=== PATIENT | male | born 1975 | race Hispanic/Latino ===

== ENCOUNTER 2020-05-05 16:32 | Emergency (ER) | payer SELFPAY ==
--- OUTSIDE RECORDS SUMMARY | 2020-05-05 16:33 | XMS REPORT | Continuity of Care Document ---
:1975 Author Organization [facility] t Address [address] [place] [address] Dr. Akbar [address] [place] [id number] Care Team Providers Name Role Phone Unavailable Unavailable Unavailable Problems This patient has no known problems. Allergies, Adverse Reactions, Alerts This patient has no known allergies or adverse reactions. Medications This patient has no known medications. Procedures This patient has no known procedures. Results This patient has no known results.
--- NOTE | 2020-05-05 18:42 | RAD REPORT ---
EXAM DESCRIPTION: Telly Pa And Lat (2 Views)05/05/2020 6:27 pm CLINICAL HISTORY: Cough COMPARISON: 2014 FINDINGS: Moderate patchy bilateral pulmonary opacities. The heart is normal size IMPRESSION: Moderate bilateral patchy lung opacities probably pneumonia
[2020-05-05] MEDS ORDERED: NA CHLORIDE 0.9% 1,000 ML ONE (19:19)
[2020-05-05] MEDS ORDERED: CEFTRIAXONE/SWI 1gm 1 GM/10 ML SYR ONE (19:19)
[2020-05-05] MEDS ORDERED: METHYLPREDNISOLONE 125 MG INJ ONE (19:19)
[2020-05-05] MEDS ORDERED: KETOROLAC 30 MG/ML INJ ONE (19:19)
[2020-05-05] MEDS ORDERED: IPRATROPIUM BROM 0.5MG/2.5ML ONE (19:24)
[2020-05-05] MEDS ORDERED: ALBUTEROL 2.5 MG/3 ML NEB SOL ONE (19:25)
[2020-05-05 19:46] LABS: Absolute Lymphocytes (CBC) 1.2 K/uL (0.7-4.9); Basophils % 0.3 % (0-1.3); Hematocrit 39.8 % (39.6-49.0); Lymphocytes % 26.5 % (15.3-44.8); RBC Red Blood Cell Count 4.81 M/uL (4.33-5.43)
[2020-05-05 20:12] LABS: Potassium 3.5 mmol/L (3.5-5.1)
--- NOTE | 2020-05-05 20:37 | ER ---
Nurse's Notes [facility] Name: Mannie Hartman Age: 44 yrs Sex: Male : 1975 Arrival Date: 05/05/2020 Time: 16:34 Bed 14 Private MD: Diagnosis: Pneumonia, unspecified organism Presentation: 05/05 16:37 Chief complaint: Patient states: "When I take a deep breath it feels like cold air and sv I have to take little breaths." x 1 week. c/o cough, congestion, "needles in my back when I move." Took Dayquil and Mucinex an hour ago. Tylenol. Coronavirus screen: Client denies travel out of the [place] in the last 14 days. Client presents with at least one sign or symptom that may indicate coronavirus-19. Standard/surgical mask placed on the client. Provider contacted for isolation considerations. Has been around someone COVID +. Ebola Screen: No symptoms or risks identified at this time. Risk Assessment: Do you want to hurt yourself or someone else? Patient reports no desire to harm self or others. Onset of symptoms was April 28, 2020. 16:37 Method Of Arrival: Ambulatory sv 16:37 Acuity: KARIS 3 sv 16:38 Initial Sepsis Screen: Does the patient meet any 2 criteria? No. Patient's initial sv sepsis screen is negative. Does the patient have a suspected source of infection? No. Patient's initial sepsis screen is negative. Historical: - Allergies: 16:38 No Known Allergies; sv - PMHx: 16:38 None; sv - PSHx: 16:38 Nasal Surgery; sv - Immunization history:: Flu vaccine is not up to date. - Social history:: Smoking status: Patient denies any tobacco usage or history of. Screenin:40 Abuse screen: Denies threats or abuse. Nutritional screening: No deficits noted. vg1 Tuberculosis screening: No symptoms or risk factors identified. Fall Risk No fall in past 12 months (0 pts). No secondary diagnosis (0 pts). IV access (20 points). Ambulatory Aid- None/Bed Rest/Nurse Assist (0 pts). Gait- Normal/Bed Rest/Wheelchair (0 pts) Mental Status- Oriented to own ability (0 pts). Total Reynoso Fall Scale indicates No Risk (0-24 pts). Assessment: 18:40 General: Appears in no apparent distress. Behavior is cooperative, anxious. Pain: vg1 Complains of pain in 'all over pain' Pain currently is 5 out of 10 on a pain scale. Pain began about a week ago. Neuro: Level of Consciousness is awake, alert, obeys commands, Oriented to person, place, time, situation. Cardiovascular: Patient's skin is warm and dry. Respiratory: Airway is patent Respiratory effort is even, unlabored, Breath sounds are clear bilaterally. GI: No signs and/or symptoms were reported involving the gastrointestinal system. : No signs and/or symptoms were reported regarding the genitourinary system. EENT: No signs and/or symptoms were reported regarding the EENT system. Derm: Skin is pink, warm \\T\\ dry. Musculoskeletal: Range of motion: intact in all extremities. 19:00 Reassessment: Patient appears in no apparent distress at this time. Patient and/or jb4 family updated on plan of care and expected duration. Pain level reassessed. Patient is alert, oriented x 3, equal unlabored respirations, skin warm/dry/pink. 20:40 Reassessment: Patient appears in no apparent distress at this time. Patient and/or jb4 family updated on plan of care and expected duration. Pain level reassessed. Patient is alert, oriented x 3, equal unlabored respirations, skin warm/dry/pink. Patient states feeling better. Patient states symptoms have improved. Vital Signs: 16:38 BP 131 / 82; Pulse 97; Resp 20; Temp 98.8; Pulse Ox 98% on R/A; Weight 95.25 kg; Height sv 5 ft. 8 in. (172.72 cm); 20:40 BP 103 / 70; Pulse 94; Resp 16; Pulse Ox 98% on R/A; jb4 16:38 Body Mass Index 31.93 (95.25 kg, 172.72 cm) sv ED Course: 16:34 Patient arrived in ED. as 16:36 Arm band placed on. sv 16:38 Triage completed. sv 18:17 Jesenia Jenkins, RN is Primary Nurse. vg1 18:18 Lian Castro FNP-C is PHCP. kb 18:18 Graham Ya MD is Attending Physician. kb 18:27 Chest Pa And Lat (2 Views) XRAY In Process Unspecified. EDMS 19:00 Patient has correct armband on for positive identification. Bed in low position. Call jb4 light in reach. Side rails up X 1. 19:00 Pulse ox on. NIBP on. jb4 19:20 Initial lab(s) drawn, by me, sent to lab. Inserted saline lock: 20 gauge in right jb4 antecubital area, using aseptic technique. Blood collected. 19:59 Primary Nurse role handed off by Jesenia Jenkins, RN mw2 20:40 Gordon Davila, LAURA is Primary Nurse. jb4 20:41 No provider procedures requiring assistance completed. IV discontinued, intact, jb4 bleeding controlled, No redness/swelling at site. Administered Medications: 19:20 Drug: NS 0.9% 1000 ml Route: IV; Rate: 1000 ml; Site: right antecubital; jb4 20:20 Follow up: Response: No adverse reaction; IV Status: Completed infusion; IV Intake: jb4 1000ml 19:20 Drug: DuoNeb (3:1) (2.5 mg - 0.5 mg) 3 ml Route: Nebulizer; jb4 19:50 Follow up: Response: No adverse reaction; Marked relief of symptoms jb4 19:21 Drug: SOLU-Medrol 125 mg Route: IVP; Site: right antecubital; jb4 19:50 Follow up: Response: No adverse reaction jb4 19:21 Drug: TORadol 30 mg Route: IVP; Site: right antecubital; jb4 19:50 Follow up: Response: No adverse reaction; Pain is decreased jb4 19:22 Drug: Rocephin 1 grams Route: IV; Rate: calculated rate; Site: right antecubital; jb4 19:30 Follow up: Response: No adverse reaction; IV Status: Completed infusion; IV Intake: [id number] 20:53 Drug: Zithromax 500 mg Route: PO; jb4 20:53 Follow up: Response: Medication administered at discharge. jb4 Intake: 19:30 IV: 10ml; Total: 10ml. jb4 20:20 IV: 1000ml; Total: 1010ml. jb4 Outcome: 20:37 Discharge ordered by . coleman 20:54 Discharged to home ambulatory. jb4 20:54 Condition: stable 20:54 Discharge instructions given to patient, Instructed on discharge instructions, follow up and referral plans. medication usage, Demonstrated understanding of instructions, follow-up care, medications, Prescriptions given X 3. 20:55 Patient left the ED. jb4 Signatures: Dispatcher [employer] Lian Farias, VERÓNICA DIGGS-Ena Amaral, RN RN Kristi Parra James, RN RN jb4 Ya Viveros2 Jesenia Jenkins RN RN vg1 Corrections: (The following items were deleted from the chart) 16:41 16:37 Chief complaint: Patient states: "When I take a deep breath it feels like cold sv air and I have to take little breaths." x 1 week. c/o cough, congestion, "needles in my back when I move." sv
--- NOTE | 2020-05-05 20:37 | EDPHYS ---
Physician Documentation [facility] Name: Mannie Hartman Age: 44 yrs Sex: Male : 1975 Arrival Date: 05/05/2020 Time: 16:34 Bed 14 Private MD: ED Physician Graham Ya HPI: 05/05 20:48 This 44 yrs old Male presents to ER via Ambulatory with complaints of kb Shortness Of Breath. 20:48 The patient has shortness of breath at rest. Onset: The symptoms/episode began/occurred kb 9 day(s) ago. Duration: The symptoms are continuous. The patient's shortness of breath is aggravated by nothing, is alleviated by nothing. Associated signs and symptoms: Pertinent positives: non-productive cough. Severity of symptoms: At their worst the symptoms were moderate in the emergency department the symptoms are unchanged. The patient has not experienced similar symptoms in the past. The patient has not recently seen a physician. Pt reports cough, body aches, shortness of breath for 10 days. Was tested for COVID at [facility] over the weekend and should get the result back tomorrow. States the body aches are the worst.. Historical: - Allergies: 16:38 No Known Allergies; sv - PMHx: 16:38 None; sv - PSHx: 16:38 Nasal Surgery; sv - Immunization history:: Flu vaccine is not up to date. - Social history:: Smoking status: Patient denies any tobacco usage or history of. ROS: 20:48 Cardiovascular: Negative for chest pain, palpitations, and edema, Abdomen/GI: Negative kb for abdominal pain, nausea, vomiting, diarrhea, and constipation, Back: Negative for injury and pain, MS/Extremity: Negative for injury and deformity, Skin: Negative for injury, rash, and discoloration, Neuro: Negative for headache, weakness, numbness, tingling, and seizure. 20:48 Constitutional: Positive for body aches, fatigue, malaise. 20:48 Respiratory: Positive for cough, shortness of breath, Negative for dyspnea on exertion, hemoptysis, orthopnea, pleurisy, sputum production, wheezing. Exam: 20:48 Constitutional: This is a well developed, well nourished patient who is awake, alert, kb and in no acute distress. Head/Face: Normocephalic, atraumatic. Chest/axilla: Normal chest wall appearance and motion. Nontender with no deformity. No lesions are appreciated. Cardiovascular: Regular rate and rhythm with a normal S1 and S2. No gallops, murmurs, or rubs. Normal PMI, no JVD. No pulse deficits. Respiratory: Lungs have equal breath sounds bilaterally, clear to auscultation and percussion. No rales, rhonchi or wheezes noted. No increased work of breathing, no retractions or nasal flaring. Abdomen/GI: Soft, non-tender, with normal bowel sounds. No distension or tympany. No guarding or rebound. No evidence of tenderness throughout. Skin: Warm, dry with normal turgor. Normal color with no rashes, no lesions, and no evidence of cellulitis. MS/ Extremity: Pulses equal, no cyanosis. Neurovascular intact. Full, normal range of motion. Neuro: Awake and alert, GCS 15, oriented to person, place, time, and situation. Cranial nerves II-XII grossly intact. Motor strength 5/5 in all extremities. Sensory grossly intact. Cerebellar exam normal. Normal gait. Vital Signs: 16:38 BP 131 / 82; Pulse 97; Resp 20; Temp 98.8; Pulse Ox 98% on R/A; Weight 95.25 kg; Height sv 5 ft. 8 in. (172.72 cm); 20:40 BP 103 / 70; Pulse 94; Resp 16; Pulse Ox 98% on R/A; jb4 16:38 Body Mass Index 31.93 (95.25 kg, 172.72 cm) sv MDM: 18:18 Patient medically screened. kb 20:48 Data reviewed: vital signs, nurses notes. Data interpreted: Pulse oximetry: on room air kb is 98 %. Interpretation: normal. Counseling: I had a detailed discussion with the patient and/or guardian regarding: the historical points, exam findings, and any diagnostic results supporting the discharge/admit diagnosis, lab results, radiology results, the need for outpatient follow up, a family practitioner, to return to the emergency department if symptoms worsen or persist or if there are any questions or concerns that arise at home. 20:48 ED course: Pt feeling better after treatment. kb 05/05 18:44 Order name: CBC with Diff; Complete Time: 19:53 kb 05/05 18:44 Order name: Basic Metabolic Panel; Complete Time: 20:20 kb 05/05 16:44 Order name: Chest Pa And Lat (2 Views) XRAY; Complete Time: 18:44 kb 05/05 18:44 Order name: Flu; Complete Time: 20:37 kb 05/05 18:45 Order name: Blood Culture Adult (2) kb 05/05 18:44 Order name: IV Start; Complete Time: 19:35 kb Administered Medications: 19:20 Drug: NS 0.9% 1000 ml Route: IV; Rate: 1000 ml; Site: right antecubital; jb4 20:20 Follow up: Response: No adverse reaction; IV Status: Completed infusion; IV Intake: jb4 1000ml 19:20 Drug: DuoNeb (3:1) (2.5 mg - 0.5 mg) 3 ml Route: Nebulizer; jb4 19:50 Follow up: Response: No adverse reaction; Marked relief of symptoms jb4 19:21 Drug: SOLU-Medrol 125 mg Route: IVP; Site: right antecubital; jb4 19:50 Follow up: Response: No adverse reaction jb4 19:21 Drug: TORadol 30 mg Route: IVP; Site: right antecubital; jb4 19:50 Follow up: Response: No adverse reaction; Pain is decreased jb4 19:22 Drug: Rocephin 1 grams Route: IV; Rate: calculated rate; Site: right antecubital; jb4 19:30 Follow up: Response: No adverse reaction; IV Status: Completed infusion; IV Intake: [id number] 20:53 Drug: Zithromax 500 mg Route: PO; jb4 20:53 Follow up: Response: Medication administered at discharge. jb4 Disposition: 05/06 11:54 Co-signature as Attending Physician, Graham Ya MD I agree with the assessment and susie plan of care. Disposition: 05/05/20 20:37 Discharged to Home. Impression: Pneumonia, unspecified organism. - Condition is Stable. - Discharge Instructions: Community-Acquired Pneumonia, Adult, [id number]. - Prescriptions for Prednisone 20 mg Oral Tablet - take 1 tablet by ORAL route once daily for 5 days; 5 tablet. Albuterol Sulfate 90 mcg/actuation - inhale 1-2 puff by INHALATION route every 4-6 hours; 1 Inhaler. Zithromax 500 mg Oral Tablet - take 1 tablet by ORAL route once daily for 5 days; 5 tablet. - Medication Reconciliation Form, Thank You Letter, Antibiotic Education, Prescription Opioid Use form. - Follow up: Emergency Department; When: As needed; Reason: Worsening of condition. Follow up: Private Physician; When: 2 - 3 days; Reason: Recheck today's complaints, Continuance of care, Re-evaluation by your physician. Signatures: Dispatcher [employer] EDLian Andrea, DONTAE-Santo DIGGS-Ena Amaral, RN RN Graham Acuña MD MD cha Bryson, James, LAURA RN jb4 Corrections: (The following items were deleted from the chart) 05/05 20:55 20:37 05/05/2020 20:37 Discharged to Home. Impression: Pneumonia, unspecified organism. jb4 Condition is Stable. Discharge Instructions: Community-Acquired Pneumonia, Adult, [id number]. Prescriptions for Prednisone 20 mg Oral Tablet - take 1 tablet by ORAL route once daily for 5 days; 5 tablet, Albuterol Sulfate 90 mcg/actuation - inhale 1-2 puff by INHALATION route every 4-6 hours; 1 Inhaler, Zithromax 500 mg Oral Tablet - take 1 tablet by ORAL route once daily for 5 days; 5 tablet. and Forms are Medication Reconciliation Form, Thank You Letter, Antibiotic Education, Prescription Opioid Use. Follow up: Emergency Department; When: As needed; Reason: Worsening of condition. Follow up: Private Physician; When: 2 - 3 days; Reason: Recheck today's complaints, Continuance of care, Re-evaluation by your physician. kb
[2020-05-05] MEDS ORDERED: AZITHROMYCIN 250 MG TAB ONE (21:02)
[2020-05-07 21:10] VITALS: TEMP 98.8; O2SAT 98
[2020-05-07 21:15] VITALS: BP 103/70
== END 2020-05-05 20:55 | disposition home or self-care (01) ==
LOC: ER 16:32
DX: J18.9 Pneumonia, unspecified organism (principal)
CPT/HCPCS: 36415; 71046; 80048; 85025; 87040; 87804; 96361; 96374; 96375; 99284; J0696; J2930; J7030

== ENCOUNTER 2020-05-14 14:14 | Emergency (ER) | payer SELFPAY ==
--- OUTSIDE RECORDS SUMMARY | 2020-05-14 14:16 | XMS REPORT | Continuity of Care Document ---
:1975 Author Organization [facility] t Address [address] [place] [address] Dr. Akbar [address] [place] [id number] Care Team Providers Name Role Phone Unavailable Unavailable Unavailable Problems This patient has no known problems. Allergies, Adverse Reactions, Alerts This patient has no known allergies or adverse reactions. Medications This patient has no known medications. Procedures This patient has no known procedures. Results This patient has no known results.
--- NOTE | 2020-05-14 18:02 | RAD REPORT ---
EXAM DESCRIPTION: RAD - Chest Single View - 05/14/2020 5:55 pm CLINICAL HISTORY: Cough;SOB Chest pain. COMPARISON: Chest Pa And Lat (2 Views) dated 05/05/2020; CHEST SINGLE VIEW dated 11/24/2013; CHEST SIN GLE VIEW dated 11/24/2013 FINDINGS: Portable technique limits examination quality. Mild interstitial lung opacities bilaterally suggesting interstitial pneumonia/ bronchitis. Overall f indings are stable since comparative study. The heart is normal in size. No displaced fractures.
[2020-05-14 18:20] LABS: Absolute Lymphocytes (CBC) 2.4 K/uL (0.7-4.9); Basophils % 0.9 % (0-1.3); Hematocrit 39.2 % (39.6-49.0); MPV 7.7 fL (7.6-11.3); RBC Red Blood Cell Count 4.75 M/uL (4.33-5.43)
[2020-05-14 18:23] LABS: Protime INR 1.05
[2020-05-14 18:28] LABS: ALT/SGPT 144 U/L (12-78); AST/SGOT 52 U/L (15-37); Albumin 3.2 g/dL (3.4-5.0); Alkaline Phosphatase 222 U/L (45-117); BUN Blood Urea Nitrogen 14 mg/dL (7-18); Bicarbonate 27 mmol/L (21-32); Bilirubin Direct < 0.1 mg/dL (0-0.2); Bilirubin Total 0.3 mg/dL (0.2-1.0); Glucose Level 82 mg/dL (74-106); Magnesium 2.2 mg/dL (1.8-2.4); NT PRO-BNP 37 pg/mL (<125); Potassium 3.8 mmol/L (3.5-5.1); Protein, Total 7.6 g/dL (6.4-8.2); Sodium Level 141 mmol/L (136-145); Troponin (Emerg Dept Use Only) < 0.02 ng/mL (0.0-0.045)
[2020-05-14 19:29] LABS: Blood Morphology Comment NOT SEEN (NOT SEEN); Platelet Estimate ADEQ; White Blood Cell Scan OK (OK)
--- NOTE | 2020-05-14 19:46 | RAD REPORT ---
EXAM DESCRIPTION: CT - Chest For Pe Angio - 05/14/2020 7:37 pm CLINICAL HISTORY: Chest pain. Chest pain;SOB COMPARISON: CT CHEST ABDOMEN W CONTRAST dated 11/24/2013 TECHNIQUE: CT angiogram of the pulmonary arteries was performed with MIP. All CT scans are performed using dose optimization technique as appropriate and may include automated exposure control or mA/KV adjustment according to patient size. FINDINGS: No evidence of pulmonary thromboembolism. No acute aortic finding demonstrated. Moderate bilateral ground-glass infiltrates are present compatible with COVID-19 infection No significant pericardial or pleural fluid. No concerning bony finding. IMPRESSION: No evidence of pulmonary thromboembolism. Moderate bilateral ground-glass infiltrates compatible with COVID-19 infection.
--- NOTE | 2020-05-14 20:01 | ER ---
Nurse's Notes [facility] Name: Mannie Hartman Age: 44 yrs Sex: Male : 1975 Arrival Date: 05/14/2020 Time: 14:18 Bed 5 Private MD: Diagnosis: Pneumonia due to other specified infectious organisms Presentation: 05/14 14:37 Chief complaint: Patient states: Covid positive for 2 weeks. Just cant get the cough ll1 and SOB to get better. Here on the 15, diagnosed with pneumonia. No fever. Coronavirus screen: Client denies travel out of the [place] in the last 14 days. congestion, cough unrelated to allergies, difficulty breathing, fatigue, Client presents with at least one sign or symptom that may indicate coronavirus-19. Standard/surgical mask placed on the client. Ebola Screen: Patient denies travel to an Ebola-affected area in the 21 days before illness onset. Initial Sepsis Screen: Does the patient meet any 2 criteria? No. Patient's initial sepsis screen is negative. Does the patient have a suspected source of infection? Yes: Productive cough/pneumonia. Risk Assessment: Do you want to hurt yourself or someone else? Patient reports no desire to harm self or others. Onset of symptoms was April 28, 2020. 14:37 Method Of Arrival: Ambulatory ll1 14:37 Acuity: KARIS 3 ll1 Triage Assessment: 14:37 General: Appears ill, Behavior is calm, cooperative, appropriate for age. Pain: Denies ll1 pain. Neuro: No deficits noted. Cardiovascular: No deficits noted. Respiratory: Reports shortness of breath cough that is Airway is patent Trachea midline Respiratory effort is even, unlabored, Respiratory pattern is regular, symmetrical, Sputum is thick, Onset: The symptoms/episode began/occurred 04/28/20, the patient has mild shortness of breath. Historical: - Allergies: 14:39 No Known Allergies; ll1 - PSHx: 14:39 Nasal Surgery; ll1 - Immunization history:: Flu vaccine is not up to date. - Social history:: Smoking status: Patient denies any tobacco usage or history of. Screenin:03 Abuse screen: Denies threats or abuse. Denies injuries from another. Nutritional jl7 screening: No deficits noted. Tuberculosis screening: No symptoms or risk factors identified. Fall Risk IV access (20 points). Total Reynoso Fall Scale indicates No Risk (0-24 pts). Assessment: 18:03 General: Appears in no apparent distress. uncomfortable, Behavior is cooperative, jl7 anxious. Pain: Complains of pain in chest Pain does not radiate. Pain currently is 7 out of 10 on a pain scale. Quality of pain is described as Reports discomfort, not pain Pain began x 2 weeks Is continuous. Neuro: Level of Consciousness is awake, alert, obeys commands, Oriented to person, place, time, situation. Cardiovascular: Patient's skin is warm and dry. Respiratory: Reports shortness of breath cough that is productive, Airway is patent Respiratory effort is even, unlabored, Respiratory pattern is regular, symmetrical. Derm: Skin is pink, warm \T\ dry. Vital Signs: 14:37 BP 126 / 97; Pulse 84; Resp 17; Temp 98.6; Pulse Ox 100% ; Weight 92.99 kg; Height 5 ll1 ft. 8 in. (172.72 cm); Pain 7/10; 20:07 BP 149 / 97; Pulse 80; Resp 18; Temp 98.5; Pulse Ox 99% on R/A; rv 14:37 Body Mass Index 31.17 (92.99 kg, 172.72 cm) ll1 ED Course: 14:18 Patient arrived in ED. as 14:39 Triage completed. ll1 14:40 Arm band placed on. ll1 17:02 Graham Kaur PA is PHCP. cp 17:02 Graham Ya MD is Attending Physician. cp 17:50 Suly Stephen RN is Primary Nurse. jl7 17:55 XRAY Chest (1 view) In Process Unspecified. EDMS 18:03 Patient has correct armband on for positive identification. Placed in gown. Bed in low jl7 position. Call light in reach. Side rails up X 1. meat pickler on. Pulse ox on. NIBP on. Warm blanket given. 18:03 Initial lab(s) drawn, by me, sent to lab. Inserted saline lock: 20 gauge in right jl7 wrist, using aseptic technique. Blood collected. Patient maintains SpO2 saturation greater than 95% on room air. 19:38 CT Chest For PE Angio In Process Unspecified. EDMS 19:57 Primary Nurse role handed off by Suly Stephen, LAURA mw2 20:00 Kade Boss MD is Referral Physician. cp 20:08 No provider procedures requiring assistance completed. IV discontinued, intact, rv bleeding controlled, No redness/swelling at site. Pressure dressing applied. Administered Medications: 20:01 Drug: predniSONE 60 mg Route: PO; rv 20:07 Follow up: Response: Medication administered at discharge. rv 20:01 Drug: LevaQUIN 500 mg Route: PO; rv 20:07 Follow up: Response: Medication administered at discharge. rv Outcome: 20:01 Discharge ordered by MD. cp 20:08 Discharged to home ambulatory, with family. rv 20:08 Condition: good 20:08 Discharge instructions given to patient, Instructed on discharge instructions, follow up and referral plans. medication usage, Demonstrated understanding of instructions, follow-up care, medications, Prescriptions given X 3. 20:09 Patient left the ED. rv Signatures: Dispatcher [employer] EDMS Kristi Del Cid Corey, PA PA cp Suly Stephen RN RN jl7 Ya Viveros mw2 Gerson Tejada RN RN rv Steve Khanna RN RN ll1
--- NOTE | 2020-05-14 20:01 | EDPHYS ---
Physician Documentation [facility] Name: Mannie Hartman Age: 44 yrs Sex: Male : 1975 Arrival Date: 05/14/2020 Time: 14:18 Bed 5 Private MD: ED Physician Graham Ya HPI: 05/14 17:15 This 44 yrs old Male presents to ER via Ambulatory with complaints of Chest cp Pain, Shortness Of Breath. 17:15 The patient or guardian reports chest pain that is located primarily in the right lower cp lateral chest. 17:15 The pain does not radiate. Associated signs and symptoms: Pertinent positives: cough, cp shortness of breath, Pertinent negatives: diaphoresis, lower extremity pain, lower extremity swelling, syncope, vomiting. The chest pain is described as "like cold air entering chest". Patient reports testing positive for COVID-19 2 weeks. Took round of antibiotics and oral steroids. C/o of continued productive cough, pain to right lateral lower chest worse with deep inspiration. Denies fever. Historical: - Allergies: 14:39 No Known Allergies; ll1 - PSHx: 14:39 Nasal Surgery; ll1 - Immunization history:: Flu vaccine is not up to date. - Social history:: Smoking status: Patient denies any tobacco usage or history of. ROS: 17:20 Constitutional: Negative for body aches, chills, fever, poor PO intake. cp 17:20 Eyes: Negative for injury, pain, redness, and discharge. cp 17:20 ENT: Negative for ear pain, sore throat, difficulty swallowing, difficulty handling secretions. 17:20 Cardiovascular: Positive for chest pain, of the right lower lateral chest, Negative for edema, palpitations. 17:20 Respiratory: Positive for cough, productive of colored sputum, shortness of breath, on exertion. Negative for wheezing. 17:20 Abdomen/GI: Negative for abdominal pain, nausea, vomiting, and diarrhea. 17:20 Back: Negative for radiated pain. 17:20 Skin: Negative for rash. 17:20 Neuro: Negative for altered mental status, headache, syncope, weakness. 17:20 All other systems are negative. Exam: 17:25 Constitutional: The patient appears in no acute distress, alert, awake, cp non-diaphoretic, non-toxic, well developed, well nourished. 17:25 Head/Face: Normocephalic, atraumatic. cp 17:25 Eyes: Periorbital structures: appear normal, Conjunctiva: normal, no exudate, no injection, Sclera: no appreciated abnormality, Lids and lashes: appear normal, bilaterally. 17:25 ENT: External ear(s): are unremarkable, Nose: is normal, Mouth: Lips: moist, Oral mucosa: moist, Posterior pharynx: Airway: no evidence of obstruction, patent, Tonsils: are normal in appearance, erythema, is not appreciated, exudate, is not appreciated. 17:25 Neck: ROM/movement: is normal, is supple, without pain, no range of motions limitations, no nuchal rigidity. 17:25 Chest/axilla: Inspection: normal, Palpation: is normal, no crepitus, no tenderness. 17:25 Cardiovascular: Rate: normal, Rhythm: regular, Edema: is not appreciated, JVD: is not appreciated. 17:25 Respiratory: the patient does not display signs of respiratory distress, Respirations: normal, no use of accessory muscles, no retractions, no splinting, no tachypnea, labored breathing, is not present, Breath sounds: bronchial sounds, that are mild, are heard in the left posterior lower lobe, right posterior middle lobe and right posterior lower lobe, stridor, is not appreciated, wheezing: is not appreciated. 17:25 Abdomen/GI: Inspection: abdomen appears normal, Bowel sounds: active, all quadrants, Palpation: abdomen is soft and non-tender, in all quadrants, rebound tenderness, is not appreciated, voluntary guarding, is not appreciated, involuntary guarding, is not appreciated. 17:25 Back: CVA tenderness, is absent. 17:25 Skin: no rash present. 17:25 Neuro: Orientation: to person, place \\T\\ time. Mentation: is normal, Motor: moves all fours, strength is normal. Vital Signs: 14:37 BP 126 / 97; Pulse 84; Resp 17; Temp 98.6; Pulse Ox 100% ; Weight 92.99 kg; Height 5 ll1 ft. 8 in. (172.72 cm); Pain 7/10; 20:07 BP 149 / 97; Pulse 80; Resp 18; Temp 98.5; Pulse Ox 99% on R/A; rv 14:37 Body Mass Index 31.17 (92.99 kg, 172.72 cm) ll1 MDM: 17:05 Patient medically screened. cp 18:00 Differential diagnosis: abnormal EKG, acute myocardial infarction, acute pericarditis, cp cholecystitis, Cholelithiasis costochondritis, pancreatitis, pleurisy, pneumonia, pneumothorax, pulmonary embolus. 20:01 Data reviewed: vital signs, nurses notes, lab test result(s), EKG, radiologic studies, cp CT scan, plain films. Test interpretation: by ED physician or midlevel provider: ECG, plain radiologic studies. Counseling: I had a detailed discussion with the patient and/or guardian regarding: the historical points, exam findings, and any diagnostic results supporting the discharge/admit diagnosis, lab results, radiology results, to return to the emergency department if symptoms worsen or persist or if there are any questions or concerns that arise at home. Response to treatment: the patient's symptoms have mildly improved after treatment. Special discussion: Based on the patient's history, exam, and Dx evaluation, there is no indication for emergent intervention or inpatient Tx. It is understood by the patient/guardian that if the Sx's persist or worsen they need to return immediately for re-evaluation. 05/14 17:34 Order name: Basic Metabolic Panel; Complete Time: 18:44 cp 05/14 17:34 Order name: CBC with Diff; Complete Time: 19:52 cp 05/14 17:34 Order name: LFT's; Complete Time: 18:44 cp 1224 18:45 Interpretation: Normal except: AST 52; ALT 144; ALK 222; ALB 3.2; GLOB 4.4; A/G 0.7. 12/ 17:34 Order name: Magnesium; Complete Time: 18:44 cp 12/24 17:34 Order name: NT PRO-BNP; Complete Time: 18:44 05/14 17:34 Order name: PT-INR; Complete Time: 18:52 24 17:34 Order name: Troponin (emerg Dept Use Only); Complete Time: 18:44 cp 24 17:34 Order name: XRAY Chest (1 view); Complete Time: 18:14 24 18:15 Interpretation: Report reviewed. 05/14 17:34 Order name: D-Dimer; Complete Time: 18:52 12/24 18:52 Order name: CT Chest For PE Angio; Complete Time: 19:52 05/14 19:52 Interpretation: Report reviewed. 05/14 19:29 Order name: CBC Smear Scan; Complete Time: 19:52 [facility] 05/14 17:09 Order name: EKG - Nurse/Tech; Complete Time: 18:03 05/14 17:34 Order name: Cardiac monitoring; Complete Time: 18:03 05/14 17:34 Order name: IV Saline Lock; Complete Time: 18:03 05/14 17:34 Order name: Labs collected and sent; Complete Time: 18:03 05/14 17:34 Order name: O2 Per Protocol; Complete Time: 18:03 05/14 17:34 Order name: O2 Sat Monitoring; Complete Time: 18:03 cp Administered Medications: 20:01 Drug: predniSONE 60 mg Route: PO; rv 20:07 Follow up: Response: Medication administered at discharge. rv 20:01 Drug: LevaQUIN 500 mg Route: PO; rv 20:07 Follow up: Response: Medication administered at discharge. rv Disposition: 05/14/20 20:01 Discharged to Home. Impression: Pneumonia due to other specified infectious organisms. - Condition is Stable. - Discharge Instructions: Community-Acquired Pneumonia, Adult, COVID-19. - Prescriptions for Levaquin 500 mg Oral Tablet - take 1 tablet by ORAL route once daily for 8-10 days continue taking medication evening of 05-16-2020; 9 tablet. Medrol (Tai) 4 mg Oral Tablets, Dose Pack - take 1 tablet by ORAL route as directed - follow package instructions; 1 packet. Albuterol Sulfate 90 mcg/actuation - inhale 1-2 puff by INHALATION route every 4-6 hours; 1 Inhaler. - Medication Reconciliation Form, Thank You Letter, Antibiotic Education, Prescription Opioid Use form. - Follow up: Kade Boss MD; When: 2 - 3 days; Reason: Recheck today's complaints. - Problem is an ongoing problem. - Symptoms have improved. Addendum: 05/16/2020 11:37 Co-signature as Attending Physician, Graham Ya MD I agree with the assessment and c enamorado plan of care. Signatures: Dispatcher [employer] Graham Owen MD MD cha Page, Corey, PA PA cp Vicente, Ronaldo, RN RN rv Steve Khanna RN RN ll1 Corrections: (The following items were deleted from the chart) 05/14 20:03 20:05/14/2020 20:01 Discharged to Home. Impression: Pneumonia due to other specified cp infectious organisms; Coronavirus infection, unspecified. Condition is Stable. Forms are Medication Reconciliation Form, Thank You Letter, Antibiotic Education, Prescription Opioid Use. Follow up: Kade Boss; When: 2 - 3 days; Reason: Recheck today's complaints. Problem is an ongoing problem. Symptoms have improved. cp 20: 20:03 05/14/2020 20:01 Discharged to Home. Impression: Pneumonia due to other specified rv infectious organisms. Condition is Stable. Discharge Instructions: Community-Acquired Pneumonia, Adult, COVID-19. Prescriptions for Levaquin 500 mg Oral Tablet - take 1 tablet by ORAL route once daily for 8-10 days continue taking medication evening of 05-16-2020; 9 tablet, Medrol (Tai) 4 mg Oral Tablets, Dose Pack - take 1 tablet by ORAL route as directed - follow package instructions; 1 packet, Albuterol Sulfate 90 mcg/actuation - inhale 1-2 puff by INHALATION route every 4-6 hours; 1 Inhaler. and Forms are Medication Reconciliation Form, Thank You Letter, Antibiotic Education, Prescription Opioid Use. Follow up: Kade Boss; When: 2 - 3 days; Reason: Recheck today's complaints. Problem is an ongoing problem. Symptoms have improved. cp
[2020-05-14 20:17] VITALS: BP 149/97; TEMP 98.5; O2SAT 99
[2020-05-14] MEDS ORDERED: levoFLOXacin 500 MG TAB ONE (20:18)
[2020-05-14] MEDS ORDERED: predniSONE 20 MG TAB ONE (20:18)
== END 2020-05-14 20:09 | disposition home or self-care (01) ==
LOC: ER 14:14
DX: J16.8 Pneumonia due to other specified infectious organisms (principal); Z86.19 Personal history of other infectious and parasitic diseases
CPT/HCPCS: 36415; 71045; 71275; 80048; 80076; 83735; 83880; 84484; 85025; 85379; 85610; 99285; J7512; Q9967